=== PATIENT | female | born 1950 | race Caucasian/White ===

== ENCOUNTER → 2017-10-23 | Day surgery (SDC) | payer OTHER ==
[~2017-10-23] VITALS: Ht 154.9 cm; Wt 123.8 kg
[~2017-10-23] MED LIST: *ENALAPRILAT 1.25 MG/ML VIAL PERIprocedural Use ONLY ONE; *LABETALOL HCL 100 MG/20 ML VIAL PERIprocedural Use ONLY ONE; *RESP: ALBUTEROL 2.5 MG/3 ML NEB (PRN) PERIprocedural Use ONLY NEB ONE; ACETAMINOPHEN 1000 MG/100 ML 100 ML IV ONE; ALBU0.63 NEB; ASPI325T27 PO; BACL10TA PO; CALC1TAB87 PO; CHLORHEXIDINE GLUCONATE 2 % 1 PACK (2 CLOTHS) TOPICAL PRN; DEXTROSE 5%-LACTATED RING INJ 1,000 ML IV SCH; DO NOT ADM ANY ANTICOAGULANT DRUGS PRN; FAMOTIDINE 20 MG/2 ML VIAL IV ONE; FAMOTIDINE 20 MG/2 ML VIAL ONE; FIBE625T PO; FURO40TA PO; GABA600T PO; GLIM4TAB PO; GLYCOPYRROLATE 1 MG/5 ML SYRINGE IV PUSH ONE; INSULIN HUMAN REGULAR 1,000 UNITS/10 ML VIAL SQ PRN; ISOS30TA3 PO; KLOR20TA3 PO; LACTATED RINGER'S 1000 ML IV PRN; LEVO100T5 PO; LIDOCAINE 1%/EPINEPHrine 1:100,000 SOLN 50 ML VIAL ONE; LIDOCAINE HCL 1% PF 5 ML SYRINGE OTHER ONE; LOVA20TA PO; METO25TA3 PO; METOPROLOL TARTRATE 25 MG TAB PO PRN; METOPROLOL TARTRATE 5 MG/5 ML VIAL IV PUSH ONE; MONT10TA4 PO; MORPHINE SULFATE 2 MG/ML SYRINGE ONE; MULT1TAB PO; NEOSTIGMINE 5 MG/5 ML SYRINGE IV PUSH ONE; NITR0.4S SL; NOVO7030P2 SQ; NOVORP2 SQ; OMEP20TA93 PO; ONDANSETRON HCL 4 MG/2 ML VIAL IV ONE; POVIDONE IODINE 5% (ANTISEPSIS KIT) 4 APPLICATIONS EACH NARE PRN; PROPOFOL 200 MG/20 ML AMP IV ONE; ROCURONIUM INJ 50 MG/5 ML SYRINGE IV PUSH ONE; SODIUM CHLORID 0.9% 500 ML IV PRN; SUGAMMADEX SODIUM 200 MG/2 ML VIAL IV PUSH ONE; SYMB160A INH; VENTAER INH; diphenhydrAMINE HCL 50 MG/ML VIAL IV ONE; diphenhydrAMINE HCL 50 MG/ML VIAL ONE; hydrALAZINE HCL 20 MG/ML VIAL IV SCH; traMADol HCL 50 MG TAB PO PRN
--- NOTE | 2017-10-23 08:23 | MP ---
cc: Asia Tapia MD, Prachi DO Nair, Santosh MD Brooks,Rolly FRANKEL DATE OF OPERATION: 10/23/2017 PREOPERATIVE DIAGNOSIS: 1. Postmenopausal bleeding. 2. Thickened endometrial stripe. POSTOPERATIVE DIAGNOSES: 1. Postmenopausal bleeding. 2. Thickened endometrial stripe. PROCEDURE PERFORMED: Examination under anesthesia, fractional dilation and curettage. SURGEON: Asia Tapia MD. LAB ANIMAL TECHNOLOGIST: [place] first press operator. ANESTHESIA: Laryngeal mask anesthesia. ESTIMATED BLOOD LOSS: 20 mL. IV FLUIDS: 400 mL. INDICATIONS: This is a 67-year-old female with postmenopausal bleeding, of uncertain duration, endometrial stripe thickened. She was counseled and presents now for further evaluation via dilation and curettage. She is seen in the preop holding area accompanied by her . The findings are again reviewed. The plan of care was discussed. Questions were asked and answered. She expressed a good understanding and agreed to proceed. FINDINGS: On exam under anesthesia, her anatomy is difficult given her body habitus. There is a rectocele, mild cystocele. There is a nulliparous pelvic outlet. The uterus and cervix are well supported and cervix is anteverted and the uterine cavity sounds to 9 cm. Upon curetting of the endocervix, a moderate amount of tissue was obtained and curetting the endometrium, a moderate amount of tissue was obtained. A lot of old blood and blood, but with small polypoid fragments. The cervix itself grossly appeared normal. There was no obvious parametrial mass or nodularity. PROCEDURE: She was taken to the operating room, placed in the dorsal lithotomy position after laryngeal mask anesthesia was administered. A time-out was undertaken. She was identified by site recognition and hospital ID bracelet and the proposed procedure was reviewed and confirmed. She was positioned in the lithotomy position, prepped and draped in a sterile fashion. With some effort and manipulation, the cervix was able to be visualized, and grasped with a tenaculum. A long posterior weighted speculum was required to help reduce the rectocele. Endocervical curetting was performed. Multiple passes circumferentially combined as endocervical curetting. Next, the uterine cavity was sounded, slightly retroverted 9 cm in depth. Cervix was dilated and curetting was performed in multiple passes circumferentially obtaining tissue as described above and the tissue was combined as endometrial curettings. The tenaculum was removed from the cervix. The site was rendered hemostatic with topical Monsel's solution. There were no remaining foreign objects in the vagina. Preliminary and final counts were correct. She was returned to dorsal supine position and was pending reversal of anesthesia when I left the operating room to precede her to the postanesthesia care unit. MD CRUZ Powers/JACKELNY , 08:02 AM , 08:22 AM
[2017-10-23 12:00] VITALS: BP 142/64; PULSE 70; RESP 18; TEMP 97.3; O2SAT 96
== END | disposition home or self-care (01) ==
LOC: HSDC 05:13
PROVIDERS: ATTEND Obstetrics & Gynecology Gynecologic Oncology
DX: N95.0 Postmenopausal bleeding (principal); R93.8 Abnormal findings on diagnostic imaging of other specified body structures; N81.6 Rectocele; N81.10 Cystocele, unspecified; E03.9 Hypothyroidism, unspecified; M85.80 Other specified disorders of bone density and structure, unspecified site; E78.00 Pure hypercholesterolemia, unspecified; K21.9 Gastro-esophageal reflux disease without esophagitis; I11.0 Hypertensive heart disease with heart failure; I25.119 Atherosclerotic heart disease of native coronary artery with unspecified angina pectoris; D64.9 Anemia, unspecified; Z01.818 Encounter for other preprocedural examination; Z86.73 Personal history of transient ischemic attack (TIA), and cerebral infarction without residual deficits
CPT/HCPCS: 00940; 58120; 82948; 86850; 86900; 86901; 88305; J0131; J1200; J2270; J2405; J2710; J3010; J7120; J7121; J7613